=== PATIENT | female | born 1960 | race Caucasian/White ===

== ENCOUNTER → 2025-02-10 | Outpatient (CLI) | payer BC, MEDICARE, SELFPAY ==
--- NOTE | 2025-02-10 16:16 | XR_ITS ---
Examination: Lumbar spine, 5 views Technique: Lumbar spine AP, lateral, coned lateral lower lumbar spine, bilateral obliques 5 views Exam date and time: February 10, 2025 1623 hours INDICATIONS: Low back pain several years FINDINGS: Lumbar dextroscoliosis 10 degrees Moderate diffuse facet arthropathy No lumbar fracture Diffuse [id number]-[id number] lumbar degenerative disc disease, most prominent L4-L5 No spondylolisthesis Moderate narrowing hip joints IMPRESSION: Diffuse [id number]-[id number] lumbar degenerative disc disease, most prominent L4-L5
== END | disposition home or self-care (01) ==
LOC: CDIM 16:11
PROVIDERS: PCP Family Medicine; Referring Provider Chiropractor; Visit Provider Chiropractor
DX: M51.360 Other intervertebral disc degeneration, lumbar region with discogenic back pain only (principal); M51.370 Other intervertebral disc degeneration, lumbosacral region with discogenic back pain only
CPT/HCPCS: 72110